=== PATIENT | male | born 1960 | race Two or more races ===

== ENCOUNTER 2017-02-03 08:22 | Emergency (ER) | payer MEDICAID ==
[~2017-02-03] VITALS: Ht 172.7 cm; Wt 97.7 kg
[2017-02-03 08:24] VITALS: BP 149/88
[2017-02-03] MEDS ORDERED: DIPHENHYDRAMINE 25 MG CAPSULE PO ONE (09:00)
[2017-02-03] MEDS ORDERED: DIPHENHYDRAMINE 50 MG CAPSULE ONE (09:04)
== END 2017-02-03 09:10 | disposition home or self-care (01) ==
LOC: ED 09:04
DX: B86 Scabies (principal); Z59.0 Homelessness
CPT/HCPCS: 99283; Q0163

== ENCOUNTER 2017-11-20 13:31 | Emergency (ER) | payer MEDICAID ==
[~2017-11-20] VITALS: Ht 172.7 cm; Wt 98.6 kg
[2017-11-20 13:35] VITALS: BP 139/80
[2017-11-20] MEDS ORDERED: ACETAMINOPHEN 325 MG TABLET ONE ×2 (13:41→13:44)
[2017-11-20] MEDS ORDERED: ACETAMINOPHEN 325 MG TABLET PO ONE (14:00)
[2017-11-20] MEDS ORDERED: HYDROmorphone 2 MG/ML, 1ML ONE (14:25)
[2017-11-20] MEDS ORDERED: HYDROmorphone 1 MG/ML, 1ML IM ONE (14:30)
== END 2017-11-20 15:13 | disposition home or self-care (01) ==
LOC: ED 15:07
DX: S62.323A Displaced fracture of shaft of third metacarpal bone, left hand, initial encounter for closed fracture (principal); W01.0XXA Fall on same level from slipping, tripping and stumbling without subsequent striking against object, initial encounter; Y93.89 Activity, other specified; Y92.89 Other specified places as the place of occurrence of the external cause; Y99.8 Other external cause status
CPT/HCPCS: 73130; 96372; 99284; J1170

== ENCOUNTER 2017-11-23 05:41 | Observation (INO) | payer MEDICAID ==
[~2017-11-23] VITALS: Ht 172.7 cm; Wt 93.7 kg
[2017-11-23] MEDS ORDERED: LACTATED RINGERS 1,000 ML IV SCH (06:02)
[2017-11-23] MEDS ORDERED: NONE PER PT (06:05)
[2017-11-23 06:10] VITALS: BP 130/77
[2017-11-23] MEDS ORDERED: MIDAZOLAM 1 MG/ML, 2ML ONE (06:49)
[2017-11-23] MEDS ORDERED: FENTANYL PF 100 MCG/2ML ONE ×3 (06:50→08:15)
[2017-11-23] MEDS ORDERED: BUPIVACAINE/PF-EPI 0.5% 1:200K ONE (06:56)
[2017-11-23] MEDS ORDERED: PROPOFOL 10 MG/ML, 20ML ONE (07:11)
[2017-11-23] MEDS ORDERED: DEXAMETHASONE 4 MG/ML, 1ML ONE ×2 (07:11)
[2017-11-23] MEDS ORDERED: PROMETHAZINE 25 MG/ML, 1ML IV PRN (08:00)
[2017-11-23] MEDS ORDERED: OXYcodone 5 MG/5 ML ORAL.SOL UDC PO PRN (08:00)
[2017-11-23] MEDS ORDERED: hydrALAzine 20 MG/ML, 1ML IV PRN (08:00)
[2017-11-23] MEDS ORDERED: HALOPERIDOL 5 MG/ML IV PRN (08:00)
[2017-11-23] MEDS ORDERED: HYDROmorphone 1 MG/ML, 1ML IV PRN (08:00)
[2017-11-23] MEDS ORDERED: MEPERIDINE/PF 25MG/0.5ML IVPush PRN (08:00)
[2017-11-23] MEDS ORDERED: ACETAMINOPHEN 325 MG TABLET PO PRN (08:00)
[2017-11-23] MEDS ORDERED: LABETALOL 5MG/ML, 20ML IV PRN (08:00)
[2017-11-23] MEDS ORDERED: OXYcodone 5 MG/5 ML ORAL.SOL UDC ONE (08:15)
[2017-11-23] MEDS ORDERED: ACETAMINOPHEN 650 MG/20.3 ML UDC ONE (08:15)
[2017-11-23] MEDS: FENTANYL PF 100 MCG/2ML IV PRN ×4 (08:21→08:46)
[2017-11-23] MEDS ORDERED: ONDANSETRON 2MG/ML, 2ML IV PRN (10:30)
[2017-11-23] MEDS: OXYcodone/APAP 5/325MG TABLET PO PRN ×3 (10:50→21:05)
[2017-11-23] MEDS: LACTATED RINGERS 1,000 ML IV SCH ×2 (10:59→23:50)
[2017-11-23 13:26] VITALS: BP 118/66
[2017-11-23 19:57] VITALS: BP 133/71
[2017-11-24 00:11] VITALS: BP 126/74
[2017-11-24] MEDS: OXYcodone/APAP 5/325MG TABLET PO PRN ×2 (03:14→07:51)
[2017-11-24 04:01] VITALS: BP 156/90
[2017-11-24 07:00] VITALS: BP 149/92
[2017-11-24] MEDS ORDERED: OXYC5CAP2 PO (08:54)
[2017-11-24 10:25] VITALS: BP 148/88
[2017-12-03] MEDS ORDERED: CEFAZOLIN 1,000 MG ONE (07:03)
== END 2017-11-24 11:38 | disposition home or self-care (01) ==
LOC: OUT 05:41 → OBSVTOIN 08:12 → ORIP 08:12 → INTOOBSV 08:12 → 4NOR 09:03
PROVIDERS: ADMIT Orthopaedic Surgery; ATTEND Orthopaedic Surgery
DX: S62.303A Unspecified fracture of third metacarpal bone, left hand, initial encounter for closed fracture (principal); S56.424A Laceration of extensor muscle, fascia and tendon of left middle finger at forearm level, initial encounter; X58.XXXA Exposure to other specified factors, initial encounter; Y93.89 Activity, other specified; Y92.89 Other specified places as the place of occurrence of the external cause; Y99.8 Other external cause status
CPT/HCPCS: 26418; 26615; 73120; 76000; C1713; G0378; J1100; J2250; J2704; J3010; J7120; J0690

== ENCOUNTER 2017-12-04 16:45 | Emergency (ER) | payer MEDICAID ==
[~2017-12-04] VITALS: Ht 172.7 cm; Wt 96.8 kg
[~2017-12-04 16:45] MED LIST: NONE PER PT; OXYC5CAP2 PO
[2017-12-04 16:47] VITALS: BP 147/96
== END 2017-12-04 17:34 | disposition home or self-care (01) ==
LOC: ED 17:25
DX: M25.532 Pain in left wrist (principal)
CPT/HCPCS: 99282

== ENCOUNTER 2017-12-06 10:17 | Emergency (ER) | payer MEDICAID ==
[~2017-12-06] VITALS: Ht 172.7 cm; Wt 92.3 kg
[2017-12-06 10:21] VITALS: BP 137/85
== END 2017-12-06 11:27 ==
LOC: ED 10:34
DX: Z48.02 Encounter for removal of sutures (principal); Z53.21 Procedure and treatment not carried out due to patient leaving prior to being seen by health care provider

== ENCOUNTER 2017-12-09 04:54 | Emergency (ER) | payer MEDICAID ==
[~2017-12-09] VITALS: Ht 172.7 cm; Wt 95.9 kg
[2017-12-09 04:57] VITALS: BP 120/71
== END 2017-12-09 05:41 | disposition home or self-care (01) ==
LOC: ED 05:20
DX: Z48.00 Encounter for change or removal of nonsurgical wound dressing (principal)
CPT/HCPCS: 99282

== ENCOUNTER 2017-12-11 09:42 | Emergency (ER) | payer MEDICAID ==
[~2017-12-11] VITALS: Ht 172.7 cm; Wt 90.2 kg
[2017-12-11 10:01] VITALS: BP 138/77
[2017-12-11 10:42] LABS: BASOPHILS # (AUTO) 0.02 x10^3/uL (0-0.1); BASOPHILS % (AUTO) 1 % (0-1); EOSINOPHILS # (AUTO) 0.08 x10^3/uL (0-0.4); EOSINOPHILS % (AUTO) 2 % (1-7); LYMPHOCYTES # (AUTO) 1.29 x10^3/uL (1-3.4); LYMPHOCYTES % (AUTO) 33 % (22-44); MD NO; MEAN CORPUSCULAR HEMOGLOBIN 32.1 pg (27.5-34.5); MEAN CORPUSCULAR HGB CONC 34.1 g/dL (33.2-36.2); MEAN CORPUSCULAR VOLUME 94.2 fL (81-97); MEAN PLATELET VOLUME 7.5 fL (7.4-10.4); MONOCYTES % (AUTO) 8 % (2-9); NEUTROPHILS # (AUTO) 2.29 x10^3/uL (1.8-6.8); NEUTROPHILS % (AUTO) 58 % (42-75); PLATELET COUNT 302 x10^3/uL (130-400); RED BLOOD COUNT 4.75 x10^6/uL (4.38-5.82); RED CELL DISTRIBUTION WIDTH 13.6 % (9.4-14.8)
[2017-12-11 10:49] LABS: ALBUMIN 4.1 g/dL (3.4-5.0); ANION GAP 9 mmol/L (5-15); CALCIUM 9.1 mg/dL (8.5-10.1); CHLORIDE 111 mmol/L (98-107); CREATININE 1.02 mg/dL (0.7-1.3)
== END 2017-12-11 12:26 | disposition home or self-care (01) ==
LOC: ED 11:27
DX: M79.642 Pain in left hand (principal); Z87.891 Personal history of nicotine dependence
CPT/HCPCS: 36415; 80048; 82040; 85025; 99285